=== PATIENT | male | born 1955 | race Caucasian/White ===

== ENCOUNTER 2025-07-05 10:00 | Day surgery (SDC) | payer OTHER ==
[2025-06-28 12:05] VITALS: BP 118/77
[2025-06-28 12:35] LABS: BASO % 0.6 % (0.1-1.2); EOS # 0.10 (0.04-0.54); EOS % 2.1 % (0.7-7.0); LYMPH # 1.32 (1.18-3.74); LYMPH % 27.8 % (19.3-53.1); MEAN PLATELET VOLUME 10.40 fl (9.4-12.4); MONO # 0.53 (0.24-0.82); MONO % 11.2 % (4.7-12.5); NEUT # 2.76 (1.56-6.13); NEUT % 58.1 % (34.0-71.1); RED CELL DISTRIBUTION WIDTH 13.2 % (11.6-14.4)
[2025-06-28 12:49] LABS: URINE APPEARANCE Clear; URINE BILIRRUBIN Negative (NEGATIVE); URINE BLOOD Negative; URINE COLOR Yellow; URINE GLUCOSE Negative (NEGATIVE); URINE KETONE Negative (NEGATIVE); URINE LEUKOCYTE Negative; URINE NITRATE Negative; URINE PROTEIN Negative (NEGATIVE); URINE UROBILINOGEN 0.2 E.U./dl
[2025-06-28 12:52] LABS: URINE RBC 4.8 uL (0.0-20.8)
[2025-06-28 12:56] LABS: URINE BACTERIA 3.6 uL (0.0-1933); URINE CAST 0.00 uL (0.0-1.40); URINE EPITHELIAL CELLS 0.9 uL (0.0-38.8); URINE WBC 0.9 uL (0.0-23.2)
[2025-06-28 12:59] LABS: INR 1.0
[2025-06-28 13:12] LABS: BUN CREA RATIO 26.0 (7.0-25.0); CREATININE SERUM 0.93 mg/dL (0.70-1.30); GFR 80.32; GLUCOSE FASTING 94.0 mg/dL (65-100); OSMOLALITY SERUM 292.0 MOSM/KG (275-295)
[2025-06-28 13:14] LABS: COVID-19 AG NEGATIVE (NEGATIVE)
[~2025-07-05] VITALS: Ht 175.3 cm; Wt 84.8 kg
[~2025-07-05 10:00] MED LIST: DULOXETINE HCL40 MG; PRAMIPEXOLE DIHY1 MG PO
[2025-07-05] MEDS ORDERED: GENTAMICIN SULFATE 40 MG/ML VIAL ONE (10:55)
[2025-07-05] MEDS ORDERED: KETOROLAC TROMETHAMINE 30 MG VIAL IV ONE (15:30)
[2025-07-05] MEDS ORDERED: FLUCONAZOLE 100 MG TABLET PO ONE (15:30)
[2025-07-05] MEDS ORDERED: KETOROLAC TROMETHAMINE 30 MG VIAL ONE (15:42)
== END 2025-07-05 18:20 | disposition home or self-care (01) ==
LOC: CIR.AMB 10:00
PROVIDERS: ATTEND Urology
DX: N39.3 Stress incontinence (female) (male) (principal); N99.89 Other postprocedural complications and disorders of genitourinary system
CPT/HCPCS: 53440; C1771